=== PATIENT | male | born 1955 | race Caucasian/White ===

== ENCOUNTER 2024-07-27 14:22 | Emergency (ER) | payer OTHER ==
[2024-07-27 15:37] LABS: Bilirubin Negative (Negative); Blood, Urine Trace (Negative); Clarity Clear (Clear); Glucose, Urine (Dipstick) Negative (Negative); Ketone, Urine Negative (Negative); Leukocyte Negative (Negative); Nitrite Negative (Negative); Protein, Urine (Dipstick) Negative (Neg-Trace); Urobilinogen 0.2 mg/dL (Less than 2)
[2024-07-27 15:39] LABS: CAUTI Indications for Culture Dysuria,urgency,freq; RBC/HPF 0-3 HPF (0-3); Squamous Epithelial 0-3 HPF (0-3); WBC/HPF None Seen HPF (0-3)
[2024-07-27 15:40] LABS: Urine Culture Reflex No No
[2024-07-27] MEDS ORDERED: Ondansetron PF 4 MG/2 ML Vial ONE (16:10)
[2024-07-27] MEDS ORDERED: Morphine 4 MG/ML VIAL ONE (16:10)
[2024-07-27] MEDS ORDERED: Acetaminophen 500 MG TAB ONE (16:10)
[2024-07-27 16:14] LABS: #Lymphocytes 0.4 thou/uL (1.20-3.40); #Monocytes 0.6 thou/uL (0.11-0.59); #Neutrophils 9.6 thou/uL (1.40-6.50); %Basophils 0.4 % (0.0-1.0); %Eosinophils 0.1 % (0.0-10.0); %Monocytes 5.3 % (0.0-10.0); %Neutrophils 90.2 % (42.0-75.0); Hematocrit 43.3 % (42.0-52.0); Hemoglobin 14.9 g/dL (14.0-18.0); Mean Corpuscular HGB CONC 34.4 g/dL (32.0-36.0); Mean Corpuscular Hemoglobin 32.5 pg (27.0-31.0); Mean Corpuscular Volume 94.4 fl (78.0-98.0); Mean Platelet Volume 11.3 fL (7.4-10.4); Platelet Count 64 10x3/uL (130-400); RBC Distribution Width 12.3 % (11.5-14.5); Red Blood Cell (RBC) Count 4.59 mill/uL (4.70-6.10); White Blood Cell (WBC) Count 10.7 10x3/uL (4.8-10.8)
[2024-07-27] MEDS ORDERED: Sodium Chloride 0.9% 1,000 ML ONE (16:16)
[2024-07-27 16:47] LABS: ALT (SGPT) 21 U/L (8-55); AST (SGOT) 34 U/L (5-34); Albumin 3.6 g/dL (3.4-4.8); Alkaline Phosphatase 116 U/L (40-110); Anion Gap 17 mmol/L (10-20); BUN (Urea Nitrogen) 15 mg/dL (8.4-25.7); Bilirubin, Total 1.5 mg/dL (0.2-1.2); Calc. Creatinine Clearance 0 mL/min (70-130); Calcium 9.2 mg/dL (7.8-10.44); Carbon Dioxide 18 mmol/L (23-31); Chloride 102 mmol/L (98-107); Estimated GFR 66; Globulin 3.9 g/dL (2.4-3.5); Glucose 94 mg/dL (80-115); Lipase 9 U/L (8-78); Potassium 4.3 mmol/L (3.5-5.1); Protein, Total 7.5 g/dL (5.8-8.1); Sodium 133 mmol/L (136-145)
[2024-07-27] MEDS ORDERED: Oseltamivir 75 MG CAP ONE (17:31)
[2024-07-27] MEDS ORDERED: Cefepime 2 GM VIAL ONE (17:31)
[2024-07-27] MEDS ORDERED: Sodium Chloride 0.9% 100 ML ONE (17:31)
[2024-07-27] MEDS ORDERED: Vancomycin 1 GM VIAL ONE (18:50)
[2024-07-27] MEDS ORDERED: Vancomycin HCl 500 MG VIAL ONE (18:50)
[2024-07-27] MEDS ORDERED: Ibuprofen 200 MG TAB ONE (18:50)
[2024-07-27] MEDS ORDERED: Sodium Chloride 0.9% 500 ML ONE (18:50)
[2024-07-27 20:09] LABS: Troponin I 0.023 ng/mL (< 0.028)
== END 2024-07-28 00:48 | disposition short-term general hospital (02) ==
LOC: NAV ERS 14:22
DX: J10.1 Influenza due to other identified influenza virus with other respiratory manifestations (principal); R09.02 Hypoxemia; I11.0 Hypertensive heart disease with heart failure; I50.9 Heart failure, unspecified; D73.2 Chronic congestive splenomegaly; D69.6 Thrombocytopenia, unspecified; Z79.899 Other long term (current) drug therapy
CPT/HCPCS: 71046; 74176; 80053; 81001; 83605; 83690; 83880; 84484; 85025; 87040; 87077; 87086; 87149; 87186; 87428; 93005; 96365; 96366; 96367; 96375; J0692; J2272; J2405; J3370; J7030